=== PATIENT | male | born 2000 | race African-American/Black ===

== ENCOUNTER 2019-05-11 18:13 | Emergency (ER) | payer SELFPAY ==
[~2019-05-11] VITALS: Ht 182.9 cm; Wt 100.0 kg
[2019-05-11 18:30] VITALS: BP 150/79
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
== END 2019-05-11 19:20 | disposition home or self-care (01) ==
LOC: ER 18:13
DX: S62.314A Displaced fracture of base of fourth metacarpal bone, right hand, initial encounter for closed fracture (principal); M79.641 Pain in right hand; R60.0 Localized edema; Y08.89XA Assault by other specified means, initial encounter; Y93.89 Activity, other specified; Y92.89 Other specified places as the place of occurrence of the external cause; Y99.8 Other external cause status
CPT/HCPCS: 29125; 73130; 99283